=== PATIENT | male | born 1990 | race Caucasian/White ===

== ENCOUNTER 2020-10-08 20:22 | Emergency (ER) | payer BC, MEDICAID, OTHER ==
[~2020-10-08] VITALS: Ht 175.3 cm; Wt 74.1 kg
[~2020-10-08 20:22] MED LIST: BUPR-192 PO; OLAN5TAB9 PO
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
[2020-10-08] MEDS ORDERED: TETANUS AND DIPHTHERIA TOX/PF 0.5 ML VIAL. VAX IM ONE (20:30)
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
[2020-10-08] MEDS ORDERED: KETOROLAC 60 MG/2 ML VIAL. IM ONE (22:00)
[2020-10-08 23:00] VITALS: BP 118/77
== END 2020-10-08 23:00 | disposition home or self-care (01) ==
LOC: ER 20:22
DX: S00.83XA Contusion of other part of head, initial encounter (principal); S60.512A Abrasion of left hand, initial encounter; S60.511A Abrasion of right hand, initial encounter; S80.212A Abrasion, left knee, initial encounter; S80.211A Abrasion, right knee, initial encounter; F17.210 Nicotine dependence, cigarettes, uncomplicated; W10.8XXA Fall (on) (from) other stairs and steps, initial encounter; Y93.89 Activity, other specified; Y92.89 Other specified places as the place of occurrence of the external cause; Y99.8 Other external cause status
CPT/HCPCS: 70450; 71046; 72125; 73130; 73564; 99284; 99285-25

== ENCOUNTER 2021-02-09 12:16 | Emergency (ER) | payer SELFPAY ==
[~2021-02-09] VITALS: Ht 175.3 cm; Wt 74.1 kg
[~2021-02-09 12:16] MED LIST changes: -BUPR-192 PO; +BUPR150T21 PO
[2021-02-09 12:26] VITALS: BP 108/47
--- NOTE | 2021-02-09 12:57 | PHYS DOC ---
Past History Past Medical History: No Pertinent History, Anxiety, Depression, Other Additional Past Medical Histor: ADD, ADHD Past Surgical History: No Surgical History Smoking: Cigarettes Alcohol Use: Occasionally Drug Use: Heroin, Marijuana, Methamphetamine General Adult EDM: Chief Complaint: CONGESTION HPI: HPI: Patient is a 30-year-old male who presents with nasal congestion, productive cough, runny nose, sneezing for 1 week. Patient denies fevers, nausea/vomiting/diarrhea, headache. Denies shortness of breath. Patient states he is coughing up green sputum. Patient reports that he has been taking Mucinex and Benadryl. "I did not see my p.o. on Tuesday so I could have a note for them and also my work". Patient has history of anxiety and depression. Review of Systems: Review of Systems: Constitutional: Denies fever or chills Eyes: Denies change in visual acuity HENT: Reports nasal congestion Respiratory: Reports productive cough or shortness of breath Cardiovascular: Denies chest pain or edema GI: Denies abdominal pain, nausea, vomiting, bloody stools or diarrhea : Denies dysuria Musculoskeletal: Denies back pain or joint pain Integument: Denies rash Neurologic: Denies headache, focal weakness or sensory changes Endocrine: Denies polyuria or polydipsia Lymphatic: Denies swollen glands Allergies: Allergies: Allergies Coded Allergies Type Severity Reaction Last Updated Verified divalproex sodium Allergy Unknown 02/09/21 Yes quetiapine Allergy Unknown 02/09/21 Yes sertraline Allergy Unknown 02/09/21 Yes Physical Exam: PE: Constitutional: Well developed, well nourished, no acute distress, non-toxic appearance HENT: bilateral external ears normal, oropharynx moist, no oral exudates Eyes: PERRLA, conjunctiva normal, no discharge. Neck: Normal range of motion, no tenderness, supple, no stridor. Cardiovascular:Heart rate regular rhythm, no murmur Lungs & Thorax: Bilateral breath sounds clear to auscultation Abdomen: Bowel sounds normal, soft, no tenderness, no masses Skin: Warm, dry, no erythema, no rash. Back: No tenderness, no CVA tenderness. Extremities: No tenderness, no cyanosis, no clubbing, ROM intact, no edema Neurologic: Alert and oriented X 3, normal motor function, normal sensory function, no focal deficits noted Psychologic: Affect normal, judgement normal, mood normal Current Patient Data: Vital Signs: Vital Signs Date Time Temp Pulse Resp B/P (MAP) Pulse Ox O2 Delivery O2 Flow Rate FiO2 02/09/21 12:26 97.3 18 108/47 (67) 100 Room Air EKG: EKG: [] Radiology/Procedures: Radiology/Procedures: [] Heart Score: C/O Chest Pain: No Risk Factors: Risk Factors: DM, Current or recent (<one month) smoker, HTN, HLP, family history of CAD, obesity. Risk Scores: Score 0 - 3: 2.5% MACE over next 6 weeks - Discharge Home Score 4 - 6: 20.3% MACE over next 6 weeks - Admit for Clinical Observation Score 7 - 10: 72.7% MACE over next 6 weeks - Early Invasive Strategies Course & Med Decision Making: Course & Med Decision Making Pertinent Labs and Imaging studies reviewed. (See chart for details) [] Patient presents with a productive cough, runny nose, sneezing for 1 week. Patient's been taking Mucinex and Benadryl to treat symptoms at home. Patient is requesting a work note for his p.o. due to missing his appointment. Patient most likely being seen to obtain note for his p.o. Instructed patient to continue to take Mucinex D and Zyrtec to treat symptoms. Patient most likely has seasonal allergies. Instructed patient to return to emergency room if he is experiencing shortness of breath or worsening symptoms. Patient also to take ibuprofen or Tylenol for discomfort. Dragon Disclaimer: DragWantful Disclaimer: This electronic medical record was generated, in whole or in part, using a voice recognition dictation system. Departure Departure: Impression: Primary Impression: Head congestion Additional Impression: Allergies Qualified Codes: T78.40XA - Allergy, unspecified, initial encounter Disposition: HOME / SELF CARE / HOMELESS Condition: STABLE Referrals: PCP,NO (PCP) Patient Instructions: Allergies, Generic Additional Instructions: You were seen in the emergency room today for a cough, runny nose and sneezing. You most likely are experiencing symptoms from seasonal allergies. Continue taking Mucinex. You can also take Zyrtec to help with symptoms. Ibuprofen and Tylenol for headache or discomfort. Make sure to increase your fluids. Return to emergency room with worsening symptoms or concerns. EMERGENCY DEPARTMENT GENERAL DISCHARGE INSTRUCTIONS Thank you for coming to [facility] (ED) today and trusting us with you care. We trust that you had a positivie experience in our Emergency Department. If you wish to speak to the department management, you may call the director at [phone]. YOUR FOLLOW UP INSTRUCTIONS ARE FOLLOWS: 1. Do you have a private Doctor? If you do not have a private doctor, please ask for a resource list of physicians or clinics that may be able to assist you with follow up care. 2. The Emergency Physician has interpreted your x-rays. The X-Ray specialist will also review them. If there is a change in the findings, you will be notified in 48 hours when at all possible. 3. A lab test or culture has been done, your results will be reviewed and you will be notified if you need a change in treatment. ADDITIONAL INSTRUCTIONS AND INFORMATION: 1. Your care today has been supervised by a physician who is specially trained in emergency care. Many problems require more than one evaluation for a complete diagnosis and treatment. We recommend that you schedule your follow up appointment as recommended to ensure complete treatment of you illness or injury. If you are unable to obtain follow up care and continue to have a problem, or if your condition worsens, we recommend that you return to the ED. 2. We are not able to safely determine your condition over the phone nor are we able to give sound medical advice over the phone. For these safety reasons, if you call for medical advice we will ask you to come to the ED for further evaluation. 3. If you have any questions regarding these discharge instructions please call the ED at [phone]. SAFETY INFORMATION: In the interest of safety, wellness, and injury prevention; we encourage you to wear your sealbelt, if you smoke; quite smoking, and we encourage family to use a prote ctive helmet for bicycling and other sporting events that present an increased risk for head injury. IF YOUR SYMPTOMS WORSEN OR NEW SYMPTOMS DEVELOP, OR YOU HAVE CONCERNS ABOUT YOUR CONDITION; OR IF YOUR CONDITION WORSENS WHILE YOU ARE WAITING FOR YOUR FOLLOW UP APPOINTMENT; EITHER CONTACT YOUR PRIMARY CARE DOCTOR, THE PHYSICIAN WHOSE NAME AND NUMBER YOU WERE GIVEN, OR RETURN TO THE ED IMMEDIATELY. CHRISTI THOMPSON APRN Feb 09, 2021 12:57
== END 2021-02-09 13:17 | disposition home or self-care (01) ==
LOC: ER 12:16
DX: T78.40XA Allergy, unspecified, initial encounter (principal); F17.210 Nicotine dependence, cigarettes, uncomplicated; Z88.8 Allergy status to other drugs, medicaments and biological substances
CPT/HCPCS: 99281

== ENCOUNTER 2021-03-04 13:43 | Emergency (ER) | payer SELFPAY ==
[~2021-03-04] VITALS: Ht 175.3 cm; Wt 64.0 kg
--- NOTE | 2021-03-04 13:50 | PHYS DOC ---
Past History Past Medical History: No Pertinent History, Anxiety, Depression, Other Additional Past Medical Histor: ADD, ADHD (RACHEL ZAMORANO APRN) Past Surgical History: No Surgical History (RACHEL ZAMORANO APRN) Smoking: Cigarettes Alcohol Use: Occasionally Drug Use: Heroin, Marijuana, Methamphetamine (RACHEL ZAMORANO APRN) Adult General Chief Complaint Chief Complaint: DRUG ABUSE HPI HPI Patient is a 30-year-old male who presents to the emergency department stating that "I have relapsed and started doing meth again ", patient states the his last methamphetamine use was last night, patient states he took "6 bars of BuSpar "today. Patient states he feels dehydrated and drunk. Patient states that he needs to get into a rehab facility to get off meth and other drugs. Patient states she is a cigarette smoker. Patient reports an allergy to Depakote, Seroquel, Zyprexa, and Zoloft. Patient denies taking any prescription medications at home. Patient denies any other physical complaints or physical concerns. (RACHEL ZAMORANO APRN) Review of Systems Review of Systems 14 body systems of review of systems have been reviewed. See HPI for pertinent positives and negative responses, otherwise all other systems are negative, nonpertinent or noncontributory. (RACHEL ZAMORANO APRN) Allergies Allergies Allergies Coded Allergies Type Severity Reaction Last Updated Verified divalproex sodium Allergy Unknown 02/09/21 Yes quetiapine Allergy Unknown 02/09/21 Yes sertraline Allergy Unknown 02/09/21 Yes (RACHEL ZAMORANO APRN) Physical Exam Physical Exam Constitutional: Well developed, well nourished, no acute distress, non-toxic appearance. Patient anxious during physical examination. HENT: Normocephalic, atraumatic, bilateral external ears normal, oropharynx mad[address] st, no oral exudates, nose normal. Eyes: PERRLA, EOMI, conjunctiva normal, no discharge. Neck: Normal range of motion, no tenderness, supple, no stridor. Cardiovascular:Heart rate regular rhythm, no murmur Lungs & Thorax: Bilateral breath sounds clear to auscultation Abdomen: Bowel sounds normal, soft, no tenderness, no masses, no pulsatile masses. Skin: Warm, dry, no erythema, no rash. Back: No tenderness, no CVA tenderness. Extremities: No tenderness, no cyanosis, no clubbing, ROM intact, no edema. Neurologic: Alert and oriented X 3, normal motor function, normal sensory function, no focal deficits noted. Psychologic: Affect normal, judgement normal, mood normal. (RACHEL ZAMORANO APRN) EKG EKG EKG performed at 1348 by house respiratory therapy staff, shows a normal sinus rhythm without ectopy, heart rate 69 bpm, ID interval 0.120, QTc interval 0.383, no acute STEMI, no ACS, no acute ischemia appreciated, EKG interpreted by ED attending physician Dr. Quintanilla. (RACHEL ZAMORANO APRN) Radiology/Procedures Radiology/Procedures [] (RACHEL ZAMORANO APRN) Heart Score C/O Chest Pain: No Risk Factors: Risk Factors: DM, Current or recent (<one month) smoker, HTN, HLP, family history of CAD, obesity. Risk Scores: Risk Factors: DM, Current or recent (<one month) smoker, HTN, HLP, family history of CAD, obesity. (RACHEL ZAMORANO APRN) Course & Med Decision Making Course & Med Decision Making Pertinent Labs and Imaging studies reviewed. (See chart for details) 22-year-old male, vital signs reviewed, presents emergency department requesting drug rehabilitation. Patient's physical examination noted patient anxious during exam. Will start IV normal saline, give 1 mg Ativan, will order psyc hiatric labs, will consult PAT steam station supervisor for psychiatric evaluation to place patient in drug rehabilitation facility. PAT steam station supervisor Nico at bedside at 1627 for evaluation. Per PAT steam station supervisor Nico, patient is amendable to going back to his custodial, following up with the guidance Center this coming Tuesday, keeping his appointments with , patient gave verbal understanding of these planning, return to ER precautions or concerns, had no further questions or concerns and was discharged home without incident. (RACHEL ZAMORANO APRN) Dragon Disclaimer Dragon Disclaimer This electronic medical record was generated, in whole or in part, using a voice recognition dictation system. (RACHEL ZAMORANO APRN) Departure Departure: Impression: Primary Impression: Drug abuse and dependence Disposition: HOME / SELF CARE / HOMELESS Condition: GOOD Referrals: PCP,NO (PCP) Additional Instructions: You are seen today in the emergency department for your ongoing drug abuse and dependence, you were evaluated by our PAT steam station supervisor Nico who has evaluated you and recommended you go back to your custodial, continue your appointment at the guidance Center this coming Tuesday, continue your appointments with your NA meetings, please keep these appointments to help with your drug dependence and your road to becoming drug-free. Please return to emergency department for worsening symptoms or other concerns. EMERGENCY DEPARTMENT GENERAL DISCHARGE INSTRUCTIONS Thank you for coming to [facility] (ED) today and trusting us with you care. We trust that you had a positivie experience in our Emergency Department. If you wish to speak to the department management, you may call the director at [phone]. YOUR FOLLOW UP INSTRUCTIONS ARE FOLLOWS: 1. Do you have a private Doctor? If you do not have a private doctor, please ask for a resource list of physicians or clinics that may be able to assist you with follow up care. 2. The Emergency Physician has interpreted your x-rays. The X-Ray specialist will also review them. If there is a change in the findings, you will be notified in 48 hours when at all possible. 3. A lab test or culture has been done, your results will be reviewed and you will be notified if you need a change in treatment. ADDITIONAL INSTRUCTIONS AND INFORMATION: 1. Your care today has been supervised by a physician who is specially trained in emergency care. Many problems require more than one evaluation for a complete diagnosis and treatment. We recommend that you schedule your follow up appointment as recommended to ensure complete treatment of you illness or injury. If you are unable to obtain follow up care and continue to have a problem, or if your condition worsens, we recommend that you return to the ED. 2. We are not able to safely determine your condition over the phone nor are we able to give sound medical advice over the phone. For these safety reasons, if you call for medical advice we will ask you to come to the ED for further evaluation. 3. If you have any questions regarding these discharge instructions please call the ED at [phone]. SAFETY INFORMATION: In the interest of safety, wellness, and injury prevention; we encourage you to wear your sealbelt, if you smoke; quite smoking, and we encourage family to use a prote ctive helmet for bicycling and other sporting events that present an increased risk for head injury. IF YOUR SYMPTOMS WORSEN OR NEW SYMPTOMS DEVELOP, OR YOU HAVE CONCERNS ABOUT YOUR CONDITION; OR IF YOUR CONDITION WORSENS WHILE YOU ARE WAITING FOR YOUR FOLLOW UP APPOINTMENT; EITHER CONTACT YOUR PRIMARY CARE DOCTOR, THE PHYSICIAN WHOSE NAME AND NUMBER YOU WERE GIVEN, OR RETURN TO THE ED IMMEDIATELY. Attending Signature Attending Signature I have reviewed the PA/INTERVENTIONAL RADIOLOGY TECH's note and plan of care. I was available for consultation as needed during the patient's visit in the emergency department. I agree with the clinical impression, plan, and disposition. (RACHEL QUINTANILLA DO) RACHEL ZAMORANO APRN March 04, 2021 13:50 RACHEL QUINTANILLA DO March 05, 2021 06:17
--- NOTE | 2021-03-04 14:00 | EKG ---
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
[2021-03-04] MEDS: IV NORMAL SALINE 1,000ML 1,000 ML IV ONE (14:15)
[2021-03-04 14:29] LABS: BASO # 0.2 x10^3/uL (0.0-0.2); BASO % 1 % (0-3); EOS # 0.1 x10^3/uL (0.0-0.7); EOS % 1 % (0-3); HEMATOCRIT 38.5 % (39.0-53.0); HEMOGLOBIN 12.7 g/dL (13.0-17.5); LYMPH # 3.3 x10^3/uL (1.0-4.8); LYMPH % 25 % (24-48); MEAN CORPUSCULAR HEMOGLOBIN 27 pg (25-35); MEAN CORPUSCULAR HGB CONC 33 g/dL (31-37); MEAN CORPUSCULAR VOLUME 82 fL (79-100); MONO # 1.4 x10^3/uL (0.0-1.1); MONO % 11 % (0-9); NEUT # 8.4 x10^3uL (1.8-7.7); NEUT % 62 % (31-73); PLATELET COUNT 390 x10^3/uL (140-400); RED BLOOD COUNT 4.69 x10^6/uL (4.30-5.70); RED CELL DISTRIBUTION WIDTH 15.8 % (11.5-14.5); WHITE BLOOD COUNT 13.4 x10^3/uL (4.0-11.0)
[2021-03-04] MEDS: LORazepam 1 MG TABLET PO ONE (14:46)
[2021-03-04 14:51] LABS: CALCIUM 9.1 mg/dL (8.5-10.1); CREATININE 1.3 mg/dL (0.7-1.3); GFR 65.7; POTASSIUM 3.9 mmol/L (3.5-5.1)
[2021-03-04 14:56] LABS: ALBUMIN 4.1 g/dL (3.4-5.0); ALBUMIN/GLOBULIN RATIO 1.2 (1.0-1.7); TOTAL BILIRUBIN 0.4 mg/dL (0.2-1.0); TOTAL PROTEIN 7.4 g/dL (6.4-8.2)
[2021-03-04 15:00] LABS: ACETAMIN < 2.0 mcg/mL (10-30); ETHANOL < 10 mg/dL (0-10); SALIC 3.2 mg/dL (2.8-20.0)
[2021-03-04 16:04] LABS: BARBITURATES NEG (NEG); BENZODIAZEPINES NEG (NEG); CANNABINOIDS NEG (NEG); COCAINE NEG (NEG); METHADONE NEG (NEG); OPIATES NEG (NEG); PHENCYCLIDINE NEG (NEG)
[2021-03-04 16:07] LABS: AMPHETAMINE/METHAMPHETAMINE POS (NEG)
[2021-03-04 16:31] LABS: BILIRUBIN,URINE NEG (NEG); CLARITY,URINE CLEAR; COLOR,URINE YELLOW; GLUCOSE,URINE NEG (NEG); NITRITE,URINE NEG (NEG); UROBILINOGEN,URINE 0.2 mg/dL (0.2 mg/dL)
[2021-03-04 16:32] LABS: BACTERIA,URINE 0 /HPF (0-FEW); WBC,URINE 0 /HPF (0-4)
[2021-03-04 17:45] VITALS: BP 136/74
== END 2021-03-04 17:50 | disposition home or self-care (01) ==
LOC: ER 13:43
DX: F15.20 Other stimulant dependence, uncomplicated (principal); F41.9 Anxiety disorder, unspecified; F32.9 Major depressive disorder, single episode, unspecified; F90.9 Attention-deficit hyperactivity disorder, unspecified type; F17.210 Nicotine dependence, cigarettes, uncomplicated; F12.10 Cannabis abuse, uncomplicated; F19.10 Other psychoactive substance abuse, uncomplicated; Z88.8 Allergy status to other drugs, medicaments and biological substances
CPT/HCPCS: 36415; 80053; 80307; 80329; 81001; 84484; 85025; 93005; 96360; 99284; G0480; J7030

== ENCOUNTER 2021-03-15 15:37 | Emergency (ER) | payer SELFPAY ==
[~2021-03-15] VITALS: Ht 175.3 cm; Wt 67.4 kg
[2021-03-15 15:37] VITALS: BP 122/53
[2021-03-15] MEDS ORDERED: CEPHALEXIN 250 MG CAPSULE PO ONE (16:00)
[2021-03-15] MEDS ORDERED: SMZ/TMP 800/160MG TABLET. PO ONE (16:00)
[2021-03-15] MEDS ORDERED: SULF1TAB24 PO (16:05)
[2021-03-15] MEDS ORDERED: CEPH500T PO (16:05)
--- NOTE | 2021-03-15 16:06 | PHYS DOC ---
Past History Past Medical History: No Pertinent History, Anxiety, Depression, Other Additional Past Medical Histor: ADD, ADHD, drug abuse Past Surgical History: No Surgical History Smoking: Cigarettes Alcohol Use: Occasionally Drug Use: Heroin, Marijuana, Methamphetamine General Adult EDM: Chief Complaint: LOWER EXT PAIN HPI: HPI: Patient is a 30-year-old male with redness to his left anterior lower leg. Patient states he had hit his leg on something few days ago. Over the past couple days noticed increasing redness and warmth around the area, no streaking up the medial leg. No calf tenderness, no extremity, no fevers, chills, sweats. Patient states he has a history of MRSA Review of Systems: Review of Systems: All other systems within normal limits except for as noted in the HPI Allergies: Allergies: Allergies Coded Allergies Type Severity Reaction Last Updated Verified divalproex sodium Allergy Unknown 02/09/21 Yes olanzapine Allergy Unknown 03/04/21 Yes quetiapine Allergy Unknown 02/09/21 Yes sertraline Allergy Unknown 02/09/21 Yes Physical Exam: PE: Constitutional: Well developed, well nourished, no acute distress, non-toxic appearance. [] HENT: Normocephalic, atraumatic, bilateral external ears normal, nose normal. [] Eyes: PERRLA, conjunctiva normal, no discharge. [] Neck: No rigidity, supple, no stridor. [] Cardiovascular: Regular rate and rhythm, brisk cap refill [] Lungs & Thorax: Non labored symmetric respirations, no tachypnea or respiratory distress [] Abdomen: Soft, nondistended. Skin: Warm, proximately 5 x 7 cm area of redness, warmth, induration with central area of linear scab lesion. Streaking up adenitis on left inner leg] Back: Unremarkable Extremities: No deformities, range of motion grossly intact, no lower extremity edema [] Neurologic: Alert and oriented X 3, no focal deficits noted. [] Psychologic: Affect normal, judgement normal, mood normal. [] EKG: EKG: [] Radiology/Procedures: Radiology/Procedures: [] Heart Score: C/O Chest Pain: No Risk Factors: Risk Factors: DM, Current or recent (<one month) smoker, HTN, HLP, family history of CAD, obesity. Risk Scores: Score 0 - 3: 2.5% MACE over next 6 weeks - Discharge Home Score 4 - 6: 20.3% MACE over next 6 weeks - Admit for Clinical Observation Score 7 - 10: 72.7% MACE over next 6 weeks - Early Invasive Strategies Course & Med Decision Making: Course & Med Decision Making Pertinent Labs and Imaging studies reviewed. (See chart for details) [] Dragon Disclaimer: Dragon Disclaimer: This electronic medical record was generated, in whole or in part, using a voice recognition dictation system. Departure Departure: Impression: Primary Impression: Cellulitis of left anterior lower leg Disposition: HOME / SELF CARE / HOMELESS Condition: STABLE Referrals: PCP,NO (PCP) Patient Instructions: Cellulitis, [id number] Additional Instructions: [facility] for primary care follow-up Address: [address] [place] [id number] Return to emergency department if not responding to antibiotics within 24 to 48 hours, or fever greater than 102. Scripts Sulfamethoxazole/Trimethoprim (BACTRIM DS TABLET) 1 Each Tablet 1 TAB PO BID for antibiotic for 7 Days, #14 TAB 0 Refills Prov: SADAF LONG MD 03/15/21 Cephalexin (CEPHALEXIN) 500 Mg Tablet 1 TAB PO TID for antibiotic for 7 Days, #21 TAB Prov: SADAF LONG MD 03/15/21 SADAF LONG MD March 15, 2021 16:06
== END 2021-03-15 16:11 | disposition home or self-care (01) ==
LOC: ER 15:37
DX: L03.116 Cellulitis of left lower limb (principal); F17.210 Nicotine dependence, cigarettes, uncomplicated; F12.10 Cannabis abuse, uncomplicated; F15.10 Other stimulant abuse, uncomplicated; Z88.6 Allergy status to analgesic agent; Z88.8 Allergy status to other drugs, medicaments and biological substances
CPT/HCPCS: 99283-25

== ENCOUNTER 2022-03-08 03:35 | Emergency (ER) | payer SELFPAY ==
[~2022-03-08] VITALS: Ht 182.9 cm; Wt 85.0 kg
[~2022-03-08 03:35] MED LIST changes: +CEPH500T PO; +OLAN5TAB67 PO; -OLAN5TAB9 PO; +SULF1TAB24 PO
--- NOTE | 2022-03-08 03:58 | PHYS DOC ---
General Adult EDM: Chief Complaint: Chest pain HPI: HPI: 31-year-old male presents with chest pain. He tells me that he has been having intermittent chest pain for the last 3 or 4 days. It has become more persistent the last 24 hours. He gets a sharp episode of moderate intensity that lasts for about an hour and then will go away for an hour and then will come back. He describes it as central chest up to his neck. He is a cigarette smoker. He denies fever or chills. Review of Systems: Review of Systems: Constitutional: Denies fever or chills Eyes: Denies change in visual acuity HENT: Denies nasal congestion or sore throat Respiratory: Denies cough or shortness of breath Cardiovascular: Chest pain GI: Denies abdominal pain, nausea, vomiting, bloody stools or diarrhea : Denies dysuria Musculoskeletal: Denies back pain or joint pain Integument: Denies rash Neurologic: Denies headache, focal weakness or sensory changes Endocrine: Denies polyuria or polydipsia Lymphatic: Denies swollen glands Psychiatric: Denies depression or anxiety Current Medications: Current Meds: Current Medications Medications (Trade) Dose Ordered Sig/Sherrill Start Time Stop Time Status Last Admin Dose Admin Lorazepam (Ativan Inj) 2 mg 1X ONCE 03/08/22 04:00 03/08/22 04:01 Allergies: Allergies: Allergies Coded Allergies Type Severity Reaction Last Updated Verified divalproex sodium Allergy Unknown 03/08/22 Yes quetiapine Allergy Unknown 03/08/22 Yes sertraline Allergy Unknown 03/08/22 Yes Physical Exam: PE: Constitutional: Well developed, well nourished, no acute distress, non-toxic appearance. [] HENT: Normocephalic, atraumatic, bilateral external ears normal, oropharynx moist, no oral exudates, nose normal. [] Eyes: PERRLA, EOMI, conjunctiva normal, no discharge. [] Neck: Normal range of motion, no tenderness, supple, no stridor. [] Cardiovascular: Heart rate 88, regular rhythm, no murmur [] Lungs & Thorax: Bilateral breath sounds clear to auscultation [] Abdomen: Bowel sounds normal, soft, no tenderness, no masses, no pulsatile masses. [] Skin: Warm, dry, no erythema, no rash. [] Back: No tenderness, no CVA tenderness. [] Extremities: No tenderness, no cyanosis, no clubbing, ROM intact, no edema. [] Neurologic: Alert and oriented X 3, normal motor function, normal sensory function, no focal deficits noted. [] Psychologic: Affect pressured, fidgeting, judgement normal, mood anxious. [] EKG: EKG: [] Radiology/Procedures: Radiology/Procedures: [] Heart Score: C/O Chest Pain: Yes HEART Score for Chest Pain: HEART Score for Chest Pain Response (Comments) Value History Slighlty/Non-Suspicious 0 ECG Nonspecific Repolarizatio 1 Age < 45 0 Risk Factors 1 or 2 Risk Factors 1 Total 2 Risk Factors: Risk Factors: DM, Current or recent (<one month) smoker, HTN, HLP, family history of CAD, obesity. Risk Scores: Score 0 - 3: 2.5% MACE over next 6 weeks - Discharge Home Score 4 - 6: 20.3% MACE over next 6 weeks - Admit for Clinical Observation Score 7 - 10: 72.7% MACE over next 6 weeks - Early Invasive Strategies Course & Med Decision Making: Course & Med Decision Making Pertinent Labs and Imaging studies reviewed. (See chart for details) Patient's EKG is negative for acute findings. We did have some issues with the EKG machine so it is not a great study. The patient refused chest x-ray. Patient's labs are unremarkable except for mild anemia. His troponin is negative. Given he has had this pain for several days it is unlikely to be cardiac in nature. This is most likely musculoskeletal or GI. Patient stable for discharge at this time. [] Dragyoung Disclaimer: Shorty Disclaimer: This electronic medical record was generated, in whole or in part, using a voice recognition dictation system. Departure Departure: Impression: Primary Impression: Chest pain Disposition: HOME / SELF CARE / HOMELESS Condition: STABLE Patient Instructions: Chest Pain (Nonspecific), [id number] RICCARDO GATES DO March 08, 2022 03:58
[2022-03-08 04:24] LABS: BASO % 0 % (0-3); EOS # 0.1 x10^3/uL (0.0-0.7); EOS % 1 % (0-3); HEMATOCRIT 36.7 % (39.0-53.0); HEMOGLOBIN 12.1 g/dL (13.0-17.5); LYMPH # 2.2 x10^3/uL (1.0-4.8); LYMPH % 22 % (24-48); MEAN CORPUSCULAR HEMOGLOBIN 27 pg (25-35); MEAN CORPUSCULAR HGB CONC 33 g/dL (31-37); MEAN CORPUSCULAR VOLUME 82 fL (79-100); MONO # 1.1 x10^3/uL (0.0-1.1); MONO % 11 % (0-9); NEUT # 6.7 x10^3uL (1.8-7.7); NEUT % 66 % (31-73); PLATELET COUNT 302 x10^3/uL (140-400); RED BLOOD COUNT 4.46 x10^6/uL (4.30-5.70); RED CELL DISTRIBUTION WIDTH 15.3 % (11.5-14.5); WHITE BLOOD COUNT 10.2 x10^3/uL (4.0-11.0)
[2022-03-08 04:34] LABS: CALCIUM 8.5 mg/dL (8.5-10.1); CREATININE 0.9 mg/dL (0.7-1.3); GFR 99.8; POTASSIUM 3.6 mmol/L (3.5-5.1)
[2022-03-08 04:39] LABS: ALBUMIN 3.6 g/dL (3.4-5.0); ALBUMIN/GLOBULIN RATIO 1.4 (1.0-1.7); TOTAL BILIRUBIN 0.6 mg/dL (0.2-1.0); TOTAL PROTEIN 6.2 g/dL (6.4-8.2)
[2022-03-08 05:29] VITALS: BP 132/80
--- NOTE | 2022-03-08 05:42 | EKG ---
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
== END 2022-03-08 05:30 | disposition home or self-care (01) ==
LOC: ER 03:35 → EDSEX 03:35 → MERGE 03:35 → ER 05:30
DX: R07.89 Other chest pain (principal); F17.210 Nicotine dependence, cigarettes, uncomplicated; Z88.8 Allergy status to other drugs, medicaments and biological substances
CPT/HCPCS: 36415; 80053; 84484; 85025; 93005; 96374; 99284; J2060